=== PATIENT | male | born 1995 | race Caucasian/White ===

== ENCOUNTER → 2020-03-01 | Outpatient (CLI) | payer BC, OTHER | LOC: LAB 09:00 → EDSTATUS 13:15 | PROVIDERS: ATTEND Anesthesiology | DX: Z01.812 Encounter for preprocedural laboratory examination (principal) ==

== ENCOUNTER 2020-04-04 00:36 | Emergency (ER) | payer BC, OTHER ==
[~2020-04-04] VITALS: Ht 177.8 cm; Wt 74.8 kg
[2020-04-04] MEDS ORDERED: FLONASE 0.05%50 MCG (01:01)
[2020-04-04 01:52] LABS: AMP/METHAMP Negative (Negative); BARBITURATES Negative (Negative); BENZODIAZEPINES Negative (Negative); COCAINE POSITIVE (Negative); METHADONE Negative (Negative); OPIATES Negative (Negative); PCP Negative (Negative)
[2020-04-04 02:30] VITALS: BP 101/60
--- NOTE | 2020-04-05 08:00 | EKG ---
[facility] [place] [address] ELECTROCARDIOGRAM REPORT Name: NONA VALERIO Room #: [facility]P [facility] [id number] Admission: 04/04/20 Attend Phys: Discharge: 04/04/20 Date of : [birth year] Report #: [id number] THIS REPORT FOR: cc: MOSHE - Swati family physician/PCP MOSHE - Swati family physician/PCP Wally Veloz MD [facility] THIS REPORT FOR: //name// [facility] ED Test Date: 2020-04-04 Test Time: 01:12:36 Pat Name: NONA VALERIO Department: Room: Gender: Basting Marker: colby : 1995 Requested By: Corey Red Order Number: [id number] MD: Wally Veloz Measurements Intervals Collins Rate: 109 P: 61 IN: 163 QRS: 60 QRSD: 87 T: 12 QT: 351 QTc: 473 Interpretive Statements Sinus tachycardia Borderline prolonged QT interval No previous ECG available for comparison Electronically Signed On 04-05-2020 7:59:46 CDT by Wally Veloz [email or web address] <ELECTRONICALLY SIGNED> By: Wally Veloz MD, FAC 04/05/20 [id number] Wally Veloz MD, [facility] /EPI
== END 2020-04-04 02:31 | disposition home or self-care (01) ==
LOC: ER 00:36
PROVIDERS: Emergency Medicine
DX: R00.0 Tachycardia, unspecified (principal); R40.0 Somnolence; F17.210 Nicotine dependence, cigarettes, uncomplicated; Z79.899 Other long term (current) drug therapy; Z53.29 Procedure and treatment not carried out because of patient's decision for other reasons